=== PATIENT | female | born 1950 | race Caucasian/White ===

== ENCOUNTER → 2016-04-24 | Outpatient (CLI) | payer OTHER ==
[~2016-04-24] MED LIST: LORA0.5T PO
--- OUTSIDE RECORDS SUMMARY | 2016-04-24 09:07 | XMS REPORT | Continuity of Care Document ---
Author Author [facility] Address Unknown Phone Unavailable Allergies Active Description Code Type Severity Reaction Onset Reported/Identified Relationship to Patient Clinical Status Yes No Known Drug Allergies [id number] Drug Allergy Unknown N/ A 03/28/2012 Medications Problems Date Dx Coded Attending Type Code Diagnosis Diagnosed By 03/28/2012 Ot 401.9 03/28/2012 Ot 564.00 03/28/2012 Ot V76.51 10/20/2013 XAVI ERICKSON LCPC 296.32 MO DEPRESSIVE RECURRENT MODERATE 10/20/2013 XAVI ERICKSON LCPC 300.02 AN GEN ANXIETY 10/20/2013 CANDIDA ANDERSON PHD 296.32 MO DEPRESSIVE RECURRENT MODERATE 10/20/2013 JUSTIN FERRELL, CANDIDA Fuller 300.02 AN GEN ANXIETY 11/09/2013 CANDIDA ANDERSON PHD 300.4 MO DYSTHYMIC DISORDER 03/13/2014 Ot 793.82 03/13/2014 Ot V76.12 03/13/2014 Ot 789.00 03/13/2014 Ot 789.00 03/13/2014 Ot V72.84 03/13/2014 SANFORD SAM MD Ot 396.3 03/13/2014 SANFORD SAM MD Ot 397.0 03/13/2014 SANFORD SAM MD Ot 428.0 05/23/2015 Ot 793.82 05/23/2015 Ot V76.12 05/23/2015 Ot 789.00 05/23/2015 Ot 789.00 05/23/2015 Ot V72.84 05/23/2015 SANFORD SAM MD Ot 396.3 05/23/2015 SANFORD SAM MD Ot 397.0 05/23/2015 SANFORD SAM MD Ot 428.0 05/23/2015 SINTIA LEWIS Ot 305.1 05/23/2015 SINTIA LEWIS Ot 401.9 05/23/2015 BRYN JOYNER, SINTIA Underwood Ot 425.4 05/23/2015 BRYN JOYNER, SINTIA Underwood Ot 426.2 05/23/2015 MARY ROSE, EVANGELISTA [place] Ot M25.552 05/23/2015 MARY ROSE, EVANGELISTA [place] Ot M79.652 05/27/2015 Ot 793.82 05/27/2015 Ot V76.12 05/27/2015 Ot 789.00 05/27/2015 Ot 789.00 05/27/2015 Ot V72.84 05/27/2015 FLACO ROSE, SANFORD [place] Ot 396.3 05/27/2015 FLACO ROSE, SANFORD [place] Ot 397.0 05/27/2015 FLACO ROSE, SANFORD [place] Ot 428.0 05/27/2015 BRYN JOYNER, SINTIA [place]wood Ot 305.1 05/27/2015 BRYN JOYNER, SINTIA [place]wood Ot 401.9 05/27/2015 BRYN JOYNER, SINTIA Underwood Ot 425.4 05/27/2015 BRYN JOYNER, ISNTIA [place]wood Ot 426.2 05/27/2015 MARY ROSE, EVANGELISTA [place] Ot M25.552 05/27/2015 MARY ROSE, EVANGELISTA [place] Ot M79.652 05/27/2015 MARY ROSE, EVANGELISTA [place] Ot M25.552 05/27/2015 MARY ROSE, EVANGELISTA [place] Ot M79.652 06/20/2015 MARY ORSE, EVANGELISTA [place] Ot M25.552 06/20/2015 MARY ROSE, EVANGELISTA [place] Ot M79.652 06/20/2015 MARY ROSE, EVANGELISTA [place] Ot M25.552 06/20/2015 MARY ROSE, EVANGELISTA [place] Ot M79.652 Procedures Code [place] [address] PSYCH DIAGNOSTIC EVALUATION 10/20/2013 35362 PSYTX PT&/FAMILY 45 MINUTES 11/09/2013 Results Encounters ACCT No. Visit Date/Time Discharge Status Pt. Type Provider Facility Loc./Unit Complaint [id number] 11/09/2013 12:52:00 11/09/2013 23: 59:59 CLS Outpatient JUSTIN FERRELL, CANDIDA Fuller [id number] 10/20/2013 12:59:00 10/20/2013 23: 59:59 CLS Outpatient XAVI ERICKSON LCPC
--- NOTE | 2016-04-24 11:49 | Diagnostic Imaging Report ---
Bilateral breast ultrasound. INDICATION: Bilateral breast pain. FINDINGS: The retroareolar region, the four quadrants, and the axillary areas were scanned in both breasts with no dramatic abnormality. IMPRESSION: Negative study. Clinical followup of patient's complaints recommended. ACR BI-RADS Category 1: Negative. Result letter will be mailed to the patient. Note: At least 10% of breast cancer is not imaged by mammography. Dictated by: Dictated on workstation # [id number]
--- NOTE | 2016-04-24 12:03 | Diagnostic Imaging Report ---
Bilateral diagnostic mammogram. CAD is utilized. COMPARISON: 03/03/2012. FINDINGS: The breasts are composed of scattered fibroglandular densities. No developing mass, architectural distortion, or suspicious cluster of calcifications seen. Allowing for technique and positional differences, no suspicious change is seen. IMPRESSION: No significant change from the prior exam. Ultrasound evaluation of areas of pain is pending. ACR BI-RADS Category 0: Incomplete. (Needs additional imaging evaluation). Result letter will be mailed to the patient. Note: At least 10% of breast cancer is not imaged by mammography. Dictated by: Dictated on workstation # [id number]
== END ==
LOC: RAD 09:04
PROVIDERS: ATTEND Nurse Practitioner Family
DX: N64.4 Mastodynia (principal)
CPT/HCPCS: 77066

== ENCOUNTER → 2021-05-23 | Outpatient (CLI) | payer MEDICARE | LOC: CARD 15:00 | PROVIDERS: ATTEND Internal Medicine Cardiovascular Disease | DX: I08.3 Combined rheumatic disorders of mitral, aortic and tricuspid valves (principal); I11.9 Hypertensive heart disease without heart failure | CPT/HCPCS: 93306 ==